=== PATIENT | female | born 1930 | race Caucasian/White ===

== ENCOUNTER 2016-09-25 08:52 | Inpatient (IN) | payer OTHER, MEDICARE ==
--- NOTE | 2016-09-24 09:31 | HP ---
[facility]ellite [facility] - Chief Complaint Chief Complaint: left hip pain - Past Medical History Allergies/Adverse Reactions: Allergies Allergy/AdvReac Type Severity Reaction Status Date / Time Penicillins Allergy Rash Verified 02/08/16 07:18 Cardiovascular: Yes: CAD (cardiac stent in 2005 and ? 2012), HTN, Hyperlipdemia - Current Medications Current Medications: Home Medications Medication Instructions Recorded Atenolol [Tenormin -] 25 mg PO DAILY 06/14/14 Valsartan [Diovan] 320 mg PO DAILY 06/14/14 Docusate Sodium [Colace -] 100 mg PO DAILY #30 capsule 11/19/15 Pantoprazole Sodium [Protonix] 40 mg PO DAILY #30 tablet. 11/19/15 Aspirin [ASA -] 81 mg PO DAILY 12/28/15 Satellite Physical Exam - Physical Examination General Appearance: Well Nourished, Well Developed, Alert & Oriented x3 ENT: Clear Lung: Normal air movement Heart: Regular rate & rhythm Extremities: Other (left hip- + ttp, decr rom, nvi xrays show severe left hip djd) Neurological: Intact, Alert, Oriented Satellite Impression/Plan - Impression/Plan Impression: left hip djd Operative Procedure: left mery thr Date to be Performed: 09/25/16
[2016-09-24 13:56] VITALS: BMI 28.1
[2016-09-25] MEDS ORDERED: GABAPENTIN 300 MG CAPSULE (FP) ONE (09:43)
[2016-09-25] MEDS ORDERED: CELECOXIB 200 MG CAPSULE ONE (09:44)
[2016-09-25] MEDS: CELECOXIB 200 MG CAPSULE PO ONE (09:45)
[2016-09-25] MEDS: GABAPENTIN 300 MG CAPSULE (FP) PO ONE (09:45)
[2016-09-25] MEDS ORDERED: TRANEXAMIC ACID 1000 MG/10 ML VIAL IVPUSH ONE (09:58)
[2016-09-25] MEDS ORDERED: MIDAZOLAM HCL 2 MG/2 ML SINGLE DOSE VIAL ONE ×2 (10:22)
[2016-09-25] MEDS ORDERED: ROPIVACAINE HCL 0.5% 30ML VIAL ONE (10:22)
[2016-09-25] MEDS ORDERED: DEXAMETHASONE SOD PHOSPHATE/PF 10 MG/ML SDV ONE (10:22)
[2016-09-25] MEDS ORDERED: SODIUM CHLORIDE 0.9% P/F 10 ML VIAL IJ ONE (10:22)
[2016-09-25] MEDS ORDERED: CEFAZOLIN 1 GM/D5W 50 ML IVPB ONE (10:45)
[2016-09-25] MEDS ORDERED: VANCOMYCIN 1,000 MG VIAL (RESTRICTED TO ID ONLY) ONE (10:57)
[2016-09-25] MEDS ORDERED: TRANEXAMIC ACID 1000 MG/10 ML VIAL ONE (11:06)
[2016-09-25] MEDS ORDERED: ePHEDrine SULFATE 50 MG/1 ML AMPULE ONE (13:43)
[2016-09-25] MEDS ORDERED: MAG HYDROX/AL HYDROX/SIMETH 30 ML UNIT-DOSE CUP PO PRN (13:55)
[2016-09-25] MEDS ORDERED: MAGNESIUM HYDROX 2400MG/30ML ORAL SUSPENSION 30 ML CUP PO PRN (13:55)
--- NOTE | 2016-09-25 13:57 | OP ---
Operative Note - Note: Operative Date: 09/25/16 (maame) Pre-Operative Diagnosis: left hip djd Operation: left mery thr Post-Operative Diagnosis: Same as Pre-op Surgeon: Cruz Gonzalez Mending Carrier: Jorgito Ram Anesthesiologist/[employer]: Tyler Castrejon Anesthesia: Spinal, Local Specimens Removed: bone fragments Estimated Blood Loss (mls): 200 Operative Report Dictated: Yes
[2016-09-25] MEDS ORDERED: LACTATED RINGERS SOLUTION 1,000 ML IV SCH (14:00)
[2016-09-25] MEDS: ONDANSETRON 4 MG/2 ML VIAL IVPB PRN (14:30)
[2016-09-25] MEDS: ACETAMINOPHEN 325 MG TABLET (FP) PO SCH ×2 (14:30→20:36)
[2016-09-25] MEDS ORDERED: ONDANSETRON 4 MG/2 ML VIAL ONE (14:37)
[2016-09-25] MEDS ORDERED: ACETAMINOPHEN 325 MG TABLET (FP) ONE (14:37)
[2016-09-25] MEDS ORDERED: oxyCODONE HCL 5 MG TABLET PO PRN (14:57)
[2016-09-25] MEDS: CEFAZOLIN 1 GM/D5W 50 ML IVPB SCH (20:36)
[2016-09-25] MEDS: SENNOSIDES/DOCUSATE COMBO (SENNA PLUS) TABLET (UD) PO SCH (21:24)
[2016-09-25] MEDS: GABAPENTIN 300 MG CAPSULE (FP) PO SCH (21:24)
[2016-09-25] MEDS: ATORVASTATIN CA 10 MG TABLET (FP) PO SCH (21:24)
[2016-09-25] MEDS: oxyCODONE HCL 5 MG TABLET PO PRN (21:28)
[2016-09-26] MEDS: oxyCODONE HCL 5 MG TABLET PO PRN ×3 (01:24→13:27)
[2016-09-26] MEDS: CEFAZOLIN 1 GM/D5W 50 ML IVPB SCH (01:24)
[2016-09-26] MEDS: ACETAMINOPHEN 325 MG TABLET (FP) PO SCH ×4 (03:00→20:42)
[2016-09-26] MEDS: ONDANSETRON 4 MG/2 ML VIAL IVPB PRN ×2 (07:53→15:01)
[2016-09-26] MEDS: ASPIRIN 325 MG TABLET PO SCH (07:54)
--- NOTE | 2016-09-26 08:15 | PN ---
Progress Note (short form) - Note Progress Note: Ortho Pt seen and examined s/p left mery thr pod #1 Selected Entries 09/26/16 06:00 Temperature 99.0 F Pulse Rate 55 L Respiratory 18 Rate Blood Pressure 133/58 dressing c/d/i, calf soft nt nvi a/p PT dvt ppx pain control d/c home tomorrow if stable
[2016-09-26 09:07] LABS: MCH 30.7 pg (25.7-33.7); MCHC 33.5 g/dl (32.0-36.0); MEAN CELL VOLUME 91.8 fl (80-96); MEAN PLT VOLUME 7.6 fl (7.5-11.1); PLATELET COUNT 202 K/MM3 (134-434); RDW 12.8 % (11.6-15.6); WHITE BLOOD COUNT 10.5 K/mm3 (4.0-10.0)
[2016-09-26 09:16] LABS: CALCIUM 8.8 mg/dl (8.4-10.2); CREATININE 0.8 mg/dl (0.6-1.3)
[2016-09-26] MEDS: ATENOLOL 25 MG TABLET (FP) PO SCH (09:30)
[2016-09-26] MEDS: SENNOSIDES/DOCUSATE COMBO (SENNA PLUS) TABLET (UD) PO SCH ×2 (09:30→21:20)
[2016-09-26] MEDS: MULTIVITAMINS (DAILY MVI) TABLET (FP) PO SCH (09:31)
[2016-09-26] MEDS: PANTOPRAZOLE 40 MG TABLET (FP) PO SCH (09:31)
[2016-09-26] MEDS: VALSARTAN 160 MG TABLET (UD) PO SCH (09:31)
[2016-09-26] MEDS: GABAPENTIN 300 MG CAPSULE (FP) PO SCH ×2 (09:31→21:20)
[2016-09-26] MEDS: FERROUS SO4 325 MG TABLET (FP) PO SCH (09:31)
[2016-09-26] MEDS: GABAPENTIN 300 MG CAPSULE (FP) PO ONE (11:08)
[2016-09-26] MEDS: CELECOXIB 200 MG CAPSULE PO ONE (11:08)
--- NOTE | 2016-09-26 12:34 | SPEC ---
DATE OF OPERATION: 09/26/2016 PREOPERATIVE DIAGNOSIS: Degenerative Joint Disease, Left Hip POSTOPERATIVE DIAGNOSIS: Degenerative Joint disease, Left Hip PROCEDURE: Left Total Hip Replacement with Robotic Arm Navigation Assistance (MAKOplasty) SURGEON: Dr. Cruz Gonzalez PRODUCT DEVELOPMENT INTERN: ANESTHESIA: Spinal and [facility]. ANESTHESIOLOGIST: CLOSURE: [place] total hip system a No. 6 Accolade 2, a 38 plus 3 MDM and 52 titanium acetabular component, No. 1 Vicryl for fascia, 0 and 2-0 subcutaneous, 3-0 Monocryl subcuticular and skin glue for skin, 4-0 undyed Vicryl for pin sites. ESTIMATED BLOOD LOSS: Less Than 100 mL. COMPLICATIONS: None. CONDITION: To recovery room in stable condition. DESCRIPTION OF OPERATIVE PROCEDURE: The patient was taken to the operating room. Spinal anesthesia as well as sciatic block was administered by the anesthesiologist. The IV Kefzol and TXA were administered prophylactically prior to the case. The patient was placed in the lateral decubitus position with all prominences well-padded. An EKG pad was secured to the inferior pole of the patella for limb length calculations intraoperatively. The left hip area was prepped and draped in the usual sterile fashion. A 12.0-15.0 cm curved longitudinal incision over the posterolateral aspect of the greater trochanter was made. Hemostasis was achieved with Bovie cautery. Sharp dissection was carried down to the level of the fascia. The fascia was opened the entire length of the incision, spreading the gluteus benjamin fibers in the direction of their origin. A Charnley retractor was placed in this layer, and care was taken to be far away from the sciatic nerve. The short external rotators were detached off the insertion of the greater trochanter and peeled off the capsule. A posterior capsulectomy was then performed. A checkpoint was malleted into the greater trochanter. Three small stab incisions were done on the iliac crest. Through these stab incisions, threaded guide pins were drilled into the iliac crest. These pins were fastened to the Navigation array. The check point on the greater trochanter, and the EKG pad on the inferior pole of the patella were used to measure preoperative limb length and offset. The hip was then dislocated. The hip was osteotomized at the appropriate level as directed by the preoperative template. Anterior and posterior retractors were placed around the acetabulum. Circumferential labrum was excised. A checkpoint was malleted into the acetabulum superiorly. The acetabulum was then registered with the Navigation device with multiple sites within the acetabulum and around the rim of the acetabulum. I t was then confirmed popping the blue bubbles, confirming ideal position and confirmation of adequate registration with the Navigation device. Using a 48 reamer, which was decided preoperatively on the preoperative template, the robotic arm was brought into the field and was used to ream the acetabulum down to the appropriate depth with the appropriate orientation and inversion applied. After reaming, a good hemispherical bleeding surface was encountered in the acetabulum. A BRIANDA shell of the appropriate size was then malleted into place achieving excellent fit. Confirmation of the appropriate orientation and inversion was confirmed using the probe, and assuring that the acetabular cup was placed in the ideal position as templated preoperatively. A real liner was then clipped into place with a 10 degree lip in the posterior-superior quadrant. Anterior and posterior osteophytes were removed using osteotome. Next, our attention was directed to the femur. The proximal femur was opened with a box chisel, rat-tail, anchovy and serial reamers. This was done until the appropriate reamer achieved good fit and fill of the proximal femur. A trial reduction with the appropriate neck and head, as again measured from our preoperative template, was performed. Limb lengths were confirmed both visually and using the Navigation device, again measuring the inferior pole of the patella and the checkpoint of the greater trochanter. This confirmed ideal position of the femoral component, lengths and offset. The trial components were removed. The real component was malleted into place. The head was cold-welded to the Charnley and the hip was reduced. Again, the hip was found to have equal limb lengths as described previously. The hip was also taken through a range of motion and found to be stable in external rotation and extension, was stable in marked flexion, stable in adduction and internal rotation, and had a positive hang test and negative telescoping. The hip was irrigated with copious amounts of irrigation. Hemostasis was achieved. Vancomycin powder was sprinkled into the joint. A second dose of TXA was administered. The fascia was closed with No. 1 Vicryl interrupted suture, 0 and 2-0 for subcutaneous, and 3-0 Monocryl subcuticular for skin with skin glue. This was followed by an Aquacel dressing. The patient was flipped into the supine position. Bilateral SCDs and an abduction pillow were applied. X-rays showed good position of the components. The patient was awakened from anesthesia and transferred to the recovery room in stable condition. COMPLICATIONS: None. ESTIMATED BLOOD LOSS: Less than 100 mL. Uriel [id number]
[2016-09-26] MEDS: ATORVASTATIN CA 10 MG TABLET (FP) PO SCH (21:20)
[2016-09-27] MEDS: ACETAMINOPHEN 325 MG TABLET (FP) PO SCH ×2 (03:20→08:05)
[2016-09-27 06:36] VITALS: BP 141/66; PULSE 67; TEMP 98.8
--- NOTE | 2016-09-27 07:59 | DS ---
Physical Examination Vital Signs: Vital Signs Temperature 98.8 F 09/27/16 06:34 Pulse Rate 67 09/27/16 06:34 Respiratory Rate 18 09/27/16 06:34 Blood Pressure 141/66 09/27/16 06:34 O2 Sat by Pulse Oximetry (%) 95 09/27/16 06:34 Labs: CBC, BMP 09/26/16 08:30 09/26/16 08:30 Discharge Summary Reason For Visit: OSTEOARTHRITIS Procedures: Principal: s/p left mery thr Hospital Course: admitted for elective left mery thr, uneventful post-op, stable for d/c Condition: Good - Instructions Diet, Activity, Other Instructions: Post-op Instructions-Total Hip Replacement Call the office for a follow-up appointment in 1 week - [phone] Aspirin 325mg daily for 6 weeks. Pain medication was sent into your pharmacy. Apply Graduated Compression Stockings (TEDs) to both lower extremities- remove daily for hygiene ONLY Apply Sequential Compression Device (SCDs) to both Lower extremities remove for PT and hygiene ONLY Apply cold packs to affected area for 15 minutes every 2 hours. Physical Therapist will come to your home for the first 5 days. You will be set up with outpatient PT at your first post-operative visit. Patient may ambulate as tolerated-encourage self care (at least every 2-3 hours while awake) with walker or cane Maintain Aquacel (waterproof) dressing to operative wound (will be removed by surgeon at first office visit) Shower with Aquacel dressing in place-if Aquacel integrity compromised, remove and apply dry sterile dressing and notify Orthopedist. DO NOT SHOWER unless Orthopedists approves without Aquacel dressing CONTACT THE OFFICE FOR ANY CHANGE IN YOUR CONDITION (for example-fever greater than 102 degrees,excessive bleeding from operative site, purulent drainage, severe swelling or pain) GO TO THE EMERGENCY ROOM IF THERE IS A MEDICAL EMERGENCY Hip Precautions: * Keep a rolled towel under affected heel while in bed or chair (to keep knee in extension) * Dependent upon approach: * Posterior - do not cross legs; do not sit on low chairs or toilets. * If you have any questions, please do not hesitate to call the office - . Referrals: Cruz Gonzalez MD [Staff Physician] - Disposition: VNS/HOME HEALTH CARE - Home Medications Comprehensive Discharge Medication List: Ambulatory Orders Atenolol [Tenormin -] 25 mg PO DAILY 06/14/14 Valsartan [Diovan] 320 mg PO DAILY 06/14/14 Ferrous Sulfate 325 mg PO DAILY 09/24/16 Multivit-Min/FA/Lycopen/Lutein [Centrum Silver Tablet] 1 each PO DAILY 09/24/16 Simvastatin 20 mg PO HS 09/24/16 Aspirin [ASA -] 325 mg PO DAILY@0800 tablet 09/25/16 Oxycodone HCl/Acetaminophen [Percocet 5-325 mg Tablet -] 1 - 2 tab PO Q6H #50 tab MDD 8 09/25/16
--- NOTE | 2016-09-27 07:59 | PN ---
Progress Note (short form) - Note Progress Note: Ortho Pt seen and examined s/p left mery thr pod #2 Selected Entries 09/27/16 06:34 Temperature 98.8 F Pulse Rate 67 Respiratory 18 Rate Blood Pressure 141/66 Laboratory Tests 09/26/16 08:30 WBC 10.5 H Hgb 11.0 Hct 32.9 Plt Count 202 dressing c/d/i, calf soft nt nvi a/p PT dvt ppx pain control d/c home today f/ u i n 1 week
[2016-09-27] MEDS: ASPIRIN 325 MG TABLET PO SCH (08:05)
[2016-09-27] MEDS: FERROUS SO4 325 MG TABLET (FP) PO SCH (09:19)
[2016-09-27] MEDS: GABAPENTIN 300 MG CAPSULE (FP) PO SCH (09:20)
[2016-09-27] MEDS: MULTIVITAMINS (DAILY MVI) TABLET (FP) PO SCH (09:20)
[2016-09-27] MEDS: SENNOSIDES/DOCUSATE COMBO (SENNA PLUS) TABLET (UD) PO SCH (09:20)
[2016-09-27] MEDS: VALSARTAN 160 MG TABLET (UD) PO SCH (09:20)
[2016-09-27] MEDS: ATENOLOL 25 MG TABLET (FP) PO SCH (09:20)
[2016-09-27] MEDS: PANTOPRAZOLE 40 MG TABLET (FP) PO SCH (09:20)
[2016-09-27 09:49] LABS: MCH 32.2 pg (25.7-33.7); MCHC 35.3 g/dl (32.0-36.0); MEAN CELL VOLUME 91.1 fl (80-96); MEAN PLT VOLUME 7.9 fl (7.5-11.1); PLATELET COUNT 187 K/MM3 (134-434); RDW 13.1 % (11.6-15.6); WHITE BLOOD COUNT 9.8 K/mm3 (4.0-10.0)
--- NOTE | 2016-09-27 13:35 | PATH ---
Surgical Pathology Report Patient Name: ANGI NGUYEN Med. Rec. #: [id number] /Age/Gender: 1930 (Age: 86) / F Account: [id number] Location: [facility] Taken: 09/25/2016 Received: 09/25/2016 Reported: 09/27/2016 Physicians: Cruz Gonzalez M.D. Specimen(s) Received LEFT FEMORAL HEAD Clinical History Left hip osteoarthritis Final Diagnosis FEMORAL HEAD, LEFT, TOTAL HIP REPLACEMENT (MAKOPLASTY): DEGENERATIVE JOINT DISEASE. Electronically Signed Ernst Song M.D. Gross Description Received in formalin, labeled "left femoral head" is a 4.8 x 4.8 x 4.7 cm femoral head with a 1.0 cm in length portion of femoral neck attached. The margin of resection is smooth. There is a 4.3 cm in greatest dimension area of eburnation present. The remaining articular surface is simpson-yellow and diffusely nodular and granular. The underlying trabecular bone is yellow and heterogeneous. A logistics service representative section is submitted in one cassette, following decalcification. 09/26/201609/26/2016
== END 2016-09-27 13:01 | disposition home health service (06) | DRG 470 ==
LOC: FM/S 08:52
PROVIDERS: ADMIT Orthopaedic Surgery; ATTEND Orthopaedic Surgery
PROC: 8E0Y0CZ Robotic Assisted Procedure of Lower Extremity, Open Approach (ICD-10-PCS; 2016-09-25)
PROC: 0SRB01A Replacement of Left Hip Joint with Metal Synthetic Substitute, Uncemented, Open Approach (ICD-10-PCS; principal; 2016-09-25 12:29)
DX: M16.12 Unilateral primary osteoarthritis, left hip (principal); I25.10 Atherosclerotic heart disease of native coronary artery without angina pectoris; Z95.5 Presence of coronary angioplasty implant and graft; I10 Essential (primary) hypertension; E78.5 Hyperlipidemia, unspecified
CPT/HCPCS: 36415; 73502-TC-LT; 80048; 85027; 88304-TC; 88311-TC; 94010; 94760; 97116-GP; 97162-PG